=== PATIENT | female | born 1985 | race Caucasian/White ===

== ENCOUNTER 2019-09-18 14:37 | Outpatient (CLI) | payer SELFPAY ==
--- NOTE | 2019-09-18 14:44 | US_ITS ---
WS: [id number] THYROID ULTRASOUND HISTORY: Hypothyroidism COMPARISON: None available. Right lobe: 2.0 cm x 0.5 cm x 1.1 cm. Volume: 0.6 cm3. Markedly small shrunken hypoechoic gland. No discrete nodule. Left lobe: 1.9 cm x 0.8 cm x 0.8 cm. Volume: 0.6 cm3. Markedly small shrunken hypoechoic gland. No discrete nodule. Isthmus: 0.1 cm. US/US thyroid [id number] IMPRESSION: Small shrunken thyroid gland. No discrete nodules.
== END 2019-09-18 14:38 | disposition home or self-care (01) ==
LOC: RAD 14:42
PROVIDERS: PCP Family Medicine; Visit Provider Nurse Practitioner Family
DX: R94.6 Abnormal results of thyroid function studies (principal); E03.9 Hypothyroidism, unspecified
CPT/HCPCS: 76536

== ENCOUNTER 2020-09-02 10:05 | Outpatient (CLI) | payer SELFPAY ==
--- NOTE | 2020-09-02 10:18 | XR_ITS ---
WS: [id number] Exam: XR KUB [id number] Date/Time of Exam: 09/02/2020 10:21 AM Reason For Exam: HEMATURIA No sign of bowel obstruction or free air. Moderate amount of stool noted throughout the colon. Visual ized organ margins appear normal. Bilateral tubal ligation clips are seen in the upper pelvis. Bony s tructures appear normal. XR/XR KUB [id number] IMPRESSION: 1. No acute abdominal finding.
== END 2020-09-02 10:06 | disposition home or self-care (01) ==
LOC: RAD 10:15
PROVIDERS: PCP Nurse Practitioner Family; Visit Provider Nurse Practitioner Family
DX: R31.9 Hematuria, unspecified (principal); R10.2 Pelvic and perineal pain
CPT/HCPCS: 74018

== ENCOUNTER 2020-09-09 15:27 | Outpatient (CLI) | payer SELFPAY ==
--- NOTE | 2020-09-09 15:50 | US_ITS ---
WS: [id number] ULTRASOUND RENAL TECHNIQUE: Ultrasound examination of both kidneys. CLINICAL INFORMATION: HEMATURIA COMPARISON: None. FINDINGS: RIGHT: Right kidney is normal in size and appearance. Echogenicity: Normal. Cortical thickness: 1.2 cm; Normal. Hydronephrosis: None. Perinephric fluid: None. Right kidney measures: 10.6 cm x 4.4 cm x 4.1 cm. LEFT: Left kidney is normal in size and appearance. Echogenicity: Normal. Cortical thickness: 1.2 cm; Normal. Hydronephrosis: None. Perinephric fluid: None. Left kidney measures: 11.3 cm x 4.4 cm x 4.7 cm. Normal visualized aorta. Normal bladder. US/US renal BI* [id number] IMPRESSION: Normal renal ultrasound.
--- NOTE | 2020-09-09 15:51 | US_ITS ---
WS: [id number] ULTRASOUND PELVIS TECHNIQUE: Transabdominal. Patient deferred transvaginal exam CLINICAL INFORMATION: PELVIC PAIN, RIGHT LMP: : No. COMPARISON: None. FINDINGS: Uterus Orientation: Anteverted. Size: 8.1 cm x 6.7 cm x 3.6 cm Masses: None. Endometrium: Normal. Endometrium thickness: 0.7 cm. Adnexa: Normal. Right ovary size: 3.3 cm x 1.6 cm x 1.4 cm. Right ovary volume: 3.9 ccm3 Left ovary size: 5.0 cm x 2.9 cm x 1.9 cm. Left ovary volume: 14.3 ccm3 Free fluid: None. Other findings: None. US/US pelvic complete* [id number] IMPRESSION: Normal pelvic ultrasound
== END 2020-09-09 15:28 | disposition home or self-care (01) ==
LOC: RAD 15:28
PROVIDERS: PCP Nurse Practitioner Family; Visit Provider Nurse Practitioner Family
DX: R31.9 Hematuria, unspecified (principal); R10.2 Pelvic and perineal pain
CPT/HCPCS: 76770; 76856

== ENCOUNTER 2023-06-08 09:21 | Day surgery (SDC) | payer BC, MEDICAID, SELFPAY ==
[2023-06-08 09:57] LABS: OR HCG Qualitative Urine Negative (Negative)
[2023-06-08 09:59] VITALS: BP 132/86; PULSE 83; RESP 18; TEMP 36.6; O2SAT 97
[2023-06-08] MEDS: sodium chloride 0.9% 1,000 ML 30 ML IV (10:00)
--- NOTE | 2023-06-08 10:14 | ANES.PREANE2 ---
Pre-Anesthetic Assessment Height/Weight: Height 1.73 m Weight 99.79 kg Temp Pulse Resp BP Pulse Ox O2 Del Method 97.8 F 83 18 132/86 97 Room Air 06/08/23 09:59 06/08/23 09:59 06/08/23 09:59 06/08/23 09:59 06/08/23 09:59 06/08/23 09:59 Preop Diagnosis: gerd and rectal bleeding Operation Date: 06/08/23 10:45 Proposed Procedures p [id number] egd [id number] colon G0105 screen colon H risk K92.2,Z80.0, K21.9(Not Applicable) - DO omayra Bess Colonoscopy(Not Applicable) - Jordan Bobo DO Familial anesthetic complications: none Was Beta Ross taken within 24 hours: N/A Was Clonidine taken within 24 hours: N/A Last intake: Intake Last Liquid Date 06/07/23 Last Liquid Time 20:00 Last Solid Date 06/06/23 Last Solid Time 20:30 Social No alcohol and No tobacco Exam alert, oriented x 3, clear to auscultation bilaterally and regular rate & rhythm Airway Submandibular: within normal limits Cervical ROM: within normal limits Mallampati: Class I Comments: Comments: denies problems History/ROS No significant history except as noted and No significant complaints Pulmonary None reported CV/HEM None reported None reported Hepatic None reported GI Gastroesophageal Reflux Disease Metabolic None reported Musc/skel None reported Neuropsych Depression and Syncope passes out with anxiety or stress Anesthetic Plan ASA status: 1 Anesthesia: Anesthesia Evaluation and MAC Risk of > 500 ml blood loss (7ml/kg in children): No Medications/Allergies Home Medications Medication Instructions Recorded Confirmed Last Taken Type ascorbate calcium (vitamin C) 500 500 mg PO DAILY 05/18/19 06/06/23 06/06/23 History mg tablet cholecalciferol (vitamin D3) 10 400 unit PO DAILY 05/18/19 06/06/23 06/06/23 History mcg (400 unit) capsule cranberry 400 mg capsule 400 mg PO DAILY 05/18/19 06/06/23 06/06/23 History prenat.vits,sheila,epc-ejdk-flcfm 1 tab PO DAILY 05/18/19 06/06/23 06/06/23 History levothyroxine 137 mcg capsule 125 mcg PO DAILY 10/18/22 06/06/23 06/06/23 History buspirone 5 mg tablet 5 mg PO BID #180 tabs 04/20/23 06/06/23 06/06/23 Rx sertraline 100 mg tablet (Zoloft) 150 mg (1.5 x 100 mg) PO DAILY 04/20/23 06/06/23 06/06/23 Rx #135 tabs trazodone 100 mg tablet 200 mg (2 x 100 mg) PO .HS PRN 04/20/23 06/06/23 06/06/23 Rx insomnia #180 tabs pantoprazole 40 mg tablet,delayed 40 mg PO BID 6 weeks #84 tabs 06/02/23 06/06/23 06/06/23 Rx release (Protonix) Allergies Allergy/AdvReac Type Severity Reaction Status Date / Time cephalexin [From Keflex] Allergy Intermediate rash Verified 06/06/23 13:11 Current Medications Generic Name Dose Route Start Last Admin Trade Name Freq PRN Reason Stop Dose Admin Sodium Chloride 1,000 mls @ 30 mls/hr 06/08/23 09:30 06/08/23 10:00 Sodium Chloride 0.9% IV 06/09/23 09:29 30 mls/hr .Q24H JOSE G Administration PFSH Anesthesia Medical History Psychiatric care Family History Mother Colon cancer Grandmother Colon cancer Unknown Colon cancer Uncle Social History Smoking and tobacco/nicotine status: never used tobacco/nicotine Second hand smoke exposure: No Alcohol intake: never Female Reproductive History Date of last menstrual period: 05/18/23 Data Anesthesia Cardiac Studies: No Data to Display
--- NOTE | 2023-06-08 10:32 | W.PM.OPSUD ---
Surgery/Procedure H&P Update DATE OF PROCEDURE: June 08, 2023 DATE H&P PERFORMED: 06/02/23 H&P UPDATE INFORMATION: I have reviewed H&P completed within last 30 days, I have examined patient prior to procedure and No changes to prior documentation PREOP DIAGNOSIS: gerd and rectal bleeding PLANNED PROCEDURE: Operation Date: 06/08/23 10:45 Proposed Procedures p [id number] egd [id number] colon G0105 screen colon H risk K92.2,Z80.0, K21.9(Not Applicable) - DO omayra Bess Colonoscopy(Not Applicable) - Jordan Bobo DO
[2023-06-08 11:00] VITALS: BP 102/71; PULSE 76; RESP 14; TEMP 36.1; O2SAT 91
[2023-06-08 11:10] VITALS: BP 105/69; PULSE 61; RESP 16; O2SAT 93
[2023-06-08 11:15] VITALS: BP 110/74; PULSE 86; RESP 18; O2SAT 93
--- NOTE | 2023-06-08 15:26 | ANE.PACU2 ---
Inpatient post-anesthesia follow up: Airway intact: Yes Vital signs: Temperature 97.0 F Pulse Rate 86 Respiratory Rate 18 Blood Pressure 110/74 Pulse Oximetry 93 Oxygen Delivery Me thod Room Air Oxygen Flow Rate 4 Fraction of Inspir ed Oxygen Hydration adequate: Yes Nausea and vomiting: No Pain level: 2 Mental status: Baseline
== END 2023-06-08 11:30 | disposition home or self-care (01) ==
PROVIDERS: Student in an Organized Health Care Education/Training Program; PCP Nurse Practitioner Family; Visit Provider Surgery
PROC: 0DJ08ZZ Inspection of Upper Intestinal Tract, Via Natural or Artificial Opening Endoscopic (ICD-10-PCS; CPT 43235; principal; 2023-06-08 10:45)
PROC: 0DJD8ZZ Inspection of Lower Intestinal Tract, Via Natural or Artificial Opening Endoscopic (ICD-10-PCS; CPT 45378; 2023-06-08 10:45)
DX: K62.5 Hemorrhage of anus and rectum (principal); K21.9 Gastro-esophageal reflux disease without esophagitis; Z80.0 Family history of malignant neoplasm of digestive organs; K29.50 Unspecified chronic gastritis without bleeding
CPT/HCPCS: 43239; 45378; 81025; 84703; 88305; 88342; J2704; J7030